=== PATIENT | female | born 1990 | race Two or more races ===

== ENCOUNTER 2021-07-19 07:53 | Inpatient (IN) | payer OTHER ==
[2021-07-19 09:59] VITALS: BMI 22.2
[2021-07-19] MEDS ORDERED: PROMETHAZINE HCL 25 MG/1 ML VIAL IVPB ONE (10:00)
[2021-07-19] MEDS ORDERED: BUTORPHANOL TARTRATE 2 MG/ML VIAL IVPB ONE (10:00)
[2021-07-19] MEDS: LACTATED RINGERS SOLUTION 1,000 ML IV SCH ×3 (10:00→23:00)
[2021-07-19] MEDS ORDERED: PROMETHAZINE HCL 25 MG/1 ML VIAL ONE (10:11)
[2021-07-19] MEDS ORDERED: BUTORPHANOL TARTRATE 2 MG/ML VIAL ONE (10:11)
[2021-07-19 10:32] LABS: BASO % 0.4 % (0-2.0); EOS % 0.6 % (0-4.5); HEMATOCRIT 37.3 % (32.4-45.2); HEMOGLOBIN 12.7 GM/dL (10.7-15.3); LYMPH % 12.5 % (8-40); MCH 31.9 pg (25.7-33.7); MEAN CELL VOLUME 93.8 fl (80-96); MEAN PLT VOLUME 8.1 fl (7.5-11.1); MONO % 5.2 % (3.8-10.2); NEUT % 81.3 % (42.8-82.8); PLATELET COUNT 178 10^3/uL (134-434); RBC 3.98 M/mm3 (3.60-5.2); RDW 14.5 % (11.6-15.6); WHITE BLOOD COUNT 8.9 K/mm3 (4.0-10.0)
[2021-07-19 10:56] LABS: COCAINE, UR NEGATIVE (NEGATIVE); OPIATES, URI NEGATIVE (NEGATIVE); PHENCYCLIDINE,URINE NEGATIVE (NEGATIVE); URINE BARBITURATES NEGATIVE (NEGATIVE); URINE BENZODIAZEPINES NEGATIVE (NEGATIVE)
[2021-07-19 10:58] LABS: METHADONE, UR NEGATIVE (NEGATIVE)
[2021-07-19 11:00] LABS: ALBUMIN 2.7 g/dl (3.4-5.0); BLOOD UREA NITROGEN 10.4 mg/dL (7-18); CALCIUM 8.4 mg/dL (8.5-10.1)
[2021-07-19 11:01] LABS: URINE AMPHETAMINES NEGATIVE (NEGATIVE)
[2021-07-19 11:03] LABS: CREATININE 0.5 mg/dL (0.55-1.3)
[2021-07-19 11:05] LABS: BILIRUBIN,TOTAL 0.3 mg/dL (0.2-1); TOT PROT 6.7 g/dl (6.4-8.2)
[2021-07-19 11:11] LABS: EPI CELLS 15 /uL (0-25.1); HYALINE CASTS 1 /uL (0-3.1); PH,URINE 6.5 (5.0-8.0); URINE APPEARANCE CLEAR; URINE BILIRUBIN NEGATIVE (NEGATIVE); URINE COLOR YELLOW; URINE GLUCOSE (UA) NEGATIVE (NEGATIVE); URINE KETONE NEGATIVE (NEGATIVE); URINE LEUK ESTERASE NEGATIVE (NEGATIVE); URINE NITRITE NEGATIVE (NEGATIVE); URINE PROTEIN NEGATIVE (NEGATIVE); URINE RBC 2 /uL (0-23.9); URINE WBC 5 /uL (0-25.8)
[2021-07-19 11:16] LABS: INR 0.91 (0.83-1.09); PROTHROMBIN TIME (PATIENT) 10.2 SEC (9.7-13.0)
[2021-07-19 11:19] LABS: ACTIVATED PTT 28.6 SECONDS (25.2-36.5)
[2021-07-19 11:34] LABS: HEPATITIS B SURFACE AG MATERN NON-REACTIVE (NONREACTIVE); SYPHILIS W/ RPR CONF NON-REACTIVE (NONREACTIVE)
[2021-07-19 12:03] LABS: HIV INTERPRETATION NEGATIVE (NEGATIVE)
[2021-07-19 12:49] LABS: URINE BACTERIA 200 /uL (0-1359)
[2021-07-19] MEDS ORDERED: OXYTOCIN 20 UNITS in 0.9% NS 20 UNIT/1,000 ML INFUS.BAG IV ONE (21:30)
[2021-07-19] MEDS ORDERED: OXYTOCIN 30 UNITS in 0.9% NS 30 UNIT/500 ML INFUS.BAG IVPB ONE (21:30)
[2021-07-19] MEDS ORDERED: LIDOCAINE HCL 1% PRESERVATIVE FREE - 30ML VIAL ONE (21:30)
[2021-07-19] MEDS ORDERED: OXYTOCIN 30 UNITS in 0.9% NS 30 UNIT/500 ML INFUS.BAG IVPB SCH (21:45)
[2021-07-19] MEDS ORDERED: PCA PUMP NR ONE (22:38)
[2021-07-19] MEDS ORDERED: FENTANYL/BUPIVACAINE/NS/PF - PCEA - 50 ML DISP.SYRIN EP ONE (22:39)
[2021-07-19] MEDS ORDERED: BUPIVACAINE HCL/PF 0.25% (2.5MG/ML) 10 ML VIAL ONE (22:52)
[2021-07-19] MEDS: FENTANYL/BUPIVACAINE/NS/PF - PCEA - 50 ML DISP.SYRIN EP SCH (23:05)
[2021-07-19] MEDS ORDERED: NALOXONE HCL 0.4 MG/ML VIAL IVPUSH PRN (23:17)
[2021-07-20] MEDS ORDERED: FENTANYL/BUPIVACAINE/NS/PF - PCEA - 50 ML DISP.SYRIN EP ONE (04:04)
[2021-07-20] MEDS ORDERED: oxyCODONE HCL 5 MG TABLET PO PRN (05:56)
[2021-07-20] MEDS ORDERED: ACETAMINOPHEN 325 MG TABLET (FP) PO PRN (05:56)
[2021-07-20] MEDS ORDERED: BENZOCAINE 20% 57 GM BOTTLE TP PRN (05:56)
[2021-07-20] MEDS ORDERED: METHYLERGONOVINE MALEATE 0.2 MG/1 ML AMP IM PRN (05:56)
[2021-07-20] MEDS ORDERED: WITCH HAZEL 50% (TUCKS) 40 PAD/JAR PAD TP PRN (05:56)
[2021-07-20] MEDS ORDERED: BENZOCAINE 28 GM HEMORRHOIDAL OINTMENT TP PRN (05:56)
[2021-07-20] MEDS ORDERED: OXYTOCIN 20 UNITS in 0.9% NS 20 UNIT/1,000 ML INFUS.BAG IV SCH (06:00)
[2021-07-20] MEDS ORDERED: ceFAZolin SODIUM 1 GM VIAL ONE (06:02)
[2021-07-20] MEDS ORDERED: ceFAZolin 2 GRAM PREMIX BAG IVPB ONE (06:05)
[2021-07-20] MEDS ORDERED: CEFAZOLIN 2 GM in SODIUM CHLORIDE 100 ML IVPB ONE (06:45)
[2021-07-20 08:16] LABS: CORD BASE EXCESS -5.5 mmol/L (0-2); CORD PCO2 51.2 mmHg (30-78); CORD pH 7.251 (7.14-7.44)
[2021-07-20] MEDS: PRENATAL VITAMINS W/ FOLIC ACID TABLET (FP) PO SCH (10:18)
[2021-07-21] MEDS: FENTANYL/BUPIVACAINE/NS/PF - PCEA - 50 ML DISP.SYRIN EP SCH (01:19)
[2021-07-21 08:06] LABS: BASO % 0.5 % (0-2.0); EOS % 0.9 % (0-4.5); HEMATOCRIT 35.2 % (32.4-45.2); LYMPH % 17.1 % (8-40); MCH 32.2 pg (25.7-33.7); MEAN CELL VOLUME 94.7 fl (80-96); MEAN PLT VOLUME 8.7 fl (7.5-11.1); MONO % 5.8 % (3.8-10.2); NEUT % 75.7 % (42.8-82.8); PLATELET COUNT 191 10^3/uL (134-434); RBC 3.72 M/mm3 (3.60-5.2); RDW 15.1 % (11.6-15.6); WHITE BLOOD COUNT 13.4 K/mm3 (4.0-10.0)
[2021-07-21] MEDS: IBUPROFEN 600 MG TABLET (FP) PO PRN (09:50)
[2021-07-21] MEDS: PRENATAL VITAMINS W/ FOLIC ACID TABLET (FP) PO SCH (09:50)
[2021-07-21] MEDS ORDERED: FLU VACC QS2021-22(6MOS UP)/PF 60 MCG/0.5 ML SYRINGE IM ONE (10:00)
[2021-07-21] MEDS ORDERED: DIPHTH,PERTUSS(ACELL),TET 0.5 ML DISP.SYRIN IM ONE (10:00)
[2021-07-21] MEDS ORDERED: SENNOSIDES/DOCUSATE COMBO (SENNA PLUS) TABLET (UD) PO PRN (22:00)
[2021-07-21 22:58] VITALS: PULSE 80; TEMP 97.2
[2021-07-22] MEDS: PRENATAL VITAMINS W/ FOLIC ACID TABLET (FP) PO SCH (09:39)
[2021-07-22] MEDS: IBUPROFEN 600 MG TABLET (FP) PO PRN (09:39)
[2021-07-22 10:07] VITALS: BP 122/82
== END 2021-07-22 15:00 | disposition home or self-care (01) | DRG 560 ==
LOC: JDEL 07:53 → JLDR 08:45 → J3W 07-20 08:12
PROVIDERS: ADMIT Obstetrics & Gynecology; ATTEND Obstetrics & Gynecology
PROC: 10E0XZZ Delivery of Products of Conception, External Approach (ICD-10-PCS; principal; 2021-07-20)
PROC: 0W8NXZZ Division of Female Perineum, External Approach (ICD-10-PCS; 2021-07-20)
DX: O80 Encounter for full-term uncomplicated delivery (principal); Z3A.39 39 weeks gestation of pregnancy; Z37.0 Single live birth
CPT/HCPCS: 36415; 36600; 59025; 59409; 80053; 80307; 81003; 82803; 85025; 85610; 85730; 86762; 86780; 86850; 86900; 86901; 87340; 87389; 88307-TC; 90686; 90715; C9803; G0008; U0003; U0005